=== PATIENT | male | born 1945 | race Caucasian/White ===

== ENCOUNTER → 2017-09-03 10:17 | Outpatient (CLI) | payer MEDICARE ==
--- NOTE | ~2017-09-03 | EC ---
PATIENT:HARSHIL GRANADOS DATE OF SERVICE: 09/03/17 SEX: M MEDICAL RECORD: [id number] DATE OF : 41 LOCATION:[facility] AGE OF PATIENT: 72 ADMISSION DATE: 09/03/17 REFERRING PHYSICIAN: INTERPRETING PHYSICIAN: SHIELA WRIGHT MD ECHOCARDIOGRAM REPORT ECHO CHARGES 4 ECHO COMPLETE Date: 09/03 CLINICAL DIAGNOSIS: CAD/HTN HX OF CABG ECHOCARDIOGRAPHIC MEASUREMENTS (adult normal given) AC root (d.<3.7cm) 3.9 cm LV Septum d (<1.2 cm> 1.3 cm Valve Excursion 2.0 cm LV Septum (systole) 1.7 cm Left Atria (s.<4.0cm> 3.7 cm LVPW d(<1.2cm) 1.6 cm RV (d.<2.3cm) 3.9 cm LVPW (sytole) 2.2 cm LV diastole(<5.6CM) 4.8 cm MV E-F(>70mm/sec) cm LV systole 3.2 cm LVOT Diameter 2.0 cm MV exc.(>10mm) 2.0 cm Est.ejection fraction (50-75%) % DOPPLER: LVIT cm/sec A 84.0 cm/sec E 52.0 cm/sec LA cm/sec RVSP 37 mmHg LVOT 103 cm/sec AOP1/2T m/s Asc. Ao 197 cm/sec RVOT 78 cm/sec RA cm/sec PA 162 cm/sec AV Gradient Peak 15.59mmHg AV Mean 8.26 mmHg AV Area 1.8 cm MV Gradient Peak 3.88 mmHg MV Mean 0.99 mmHg MV Area cm COMMENTS: Mock Up Builder: 2 MERE COLES Program Officer: 4 Dr. Wright TAPE# PACS Pericardial Effusion N DATE OF SERVICE: PROCEDURE: Transthoracic echocardiogram. FINDINGS: 1. Left ventricular function is 55%. The patient has mild left ventricular hypertrophy. The patient's inflow characteristics consistent with diastolic dysfunction. 2. The left atrium is normal size, normal function. 3. The right ventricle is normal size to mildly dilated, but normal function. ECHOCARDIOGRAM REPORT [id number] HARSHIL GRANADOS 3. The mitral valve has trace mitral regurgitation. 4. The aortic valve is normal. 5. The tricuspid valve has trace tricuspid regurgitation. RVSP is normal. 6. The pulmonic valve has trace pulmonic insufficiency. CONCLUSION: The patient has evidence of hypertensive heart disease, otherwise normal echocardiogram for stated age. TRANSINT:[id number] Voice Confirmation ID: [id number] DOCUMENT ID: [id number] SHIELA WRIGHT MD at 0942 CC: [id number] DICTATION DATE: 09/04/17 0740 EMERGENCY NURSE: 09/04/17 1205 [facility] CLI 09/03/17 [place] [id number] [place] [id number]
== END | disposition home or self-care (01) ==
LOC: D.ECHO 09:00
DX: I25.10 Atherosclerotic heart disease of native coronary artery without angina pectoris (principal); E78.5 Hyperlipidemia, unspecified; I10 Essential (primary) hypertension